=== PATIENT | male | born 1960 | race Caucasian/White ===

== ENCOUNTER → 2016-12-22 | Outpatient (CLI) | payer OTHER ==
--- NOTE | 2016-12-22 09:58 | CTL ---
EXAMINATION TYPE: CT Low Dose Lung cancer screening DATE OF EXAM ORDERED: 12/22/2016 9:21 AM HISTORY: 56-year-old male screening CT exam for lung cancer, personal history of tobacco use. CT DLP: [address] CTDI: 2.75 mGy Automated exposure control for dose reduction was used. SCREENING VISIT: Baseline COMPARISON: None TECHNIQUE: Low dose computed tomography scan was performed through the chest at 1 mm thick sections and reconstructed images in the coronal plane at 1 mm thick sections. Coronal and sagittal reconstructions performed. CT DIAGNOSTIC QUALITY: Limited, but interpretable FINDINGS: Heart is normal size without pericardial effusion. Coronary vessel calcifications are present and are a marker for coronary artery disease. Aortic valvular calcifications are noted. Mild atherosclerotic arch calcifications with conventional arch vessel branching anatomy. Scattered nonenlarged mediastinal lymph nodes. No thoracic lymphadenopathy identified by CT size criteria. Mild diffuse bronchial wall thickening. No consolidation or pleural effusion. No suspicious pulmonary nodule or mass. Minimal strandy atelectasis at the inferior lingula. Visualized upper abdomen shows moderate stool within the colon. The spleen is enlarged at 15.8 cm. Bones: No osseous destructive process. IMPRESSION: 1. Lung RADS 1 - negative; no suspicious pulmonary nodules seen. 2. Mild diffuse bronchial wall thickening could represent bronchitis or chronic asthma. 3. CAD. 4. Splenomegaly at 15.8 cm. RECOMMENDATION: 1. Continue annual screening with low dose CT in 12 months. 2. Smoking cessation. 3. Clinical correlation for patient's splenomegaly. CT LUNG RAD: Lung-Rad 1 Negative MTDD
== END | disposition home or self-care (01) ==
LOC: RADCTMAIN 08:57
PROVIDERS: ATTEND Family Medicine
DX: Z87.891 Personal history of nicotine dependence (principal)

== ENCOUNTER 2017-04-08 18:16 | Inpatient (IN) | payer OTHER ==
[2017-04-08] MEDS ORDERED: ONDANSETRON 4 MG/2 ML VIAL IVP STA (19:29)
[2017-04-08] MEDS ORDERED: HYDROmorphone 1 MG/ML 1 ML SYRINGE IVP STA (19:29)
--- NOTE | 2017-04-08 19:32 | ED ---
General Adult HPI - General Source: patient, RN notes reviewed Mode of arrival: wheelchair Limitations: no limitations <Rich Fleming - Last Filed: 04/08/17 19:38> <Rigo Wetzel - Last Filed: 04/08/17 22:37> - General Chief complaint: Skin/Abscess/Foreign Body Stated complaint: abscess on groin Time Seen by Provider: 04/08/17 19:25 - History of Present Illness Initial comments: Patient 56-year-old male who presents emergency room today with chief complaint of left-sided scrotal abscess. He does admit that he had similar approximate 6 years ago that was drained by urologist in [place]. He states that he noticed small bump just 2 days ago. States Larger over the last 2 days much more tender to the area. States worse with any movements. Worse on palpation. Please use medication as discussed. Please follow-up with family doctor in the next 2 days of symptoms have not improved. Please return to emergency room if the symptoms increase or worsen or for any other concerns. Denies any other complaints associated symptoms. Patient denies any recent fever, chills, shortness of breath, chest pain, back pain, abdominal pain, nausea or vomiting, numbness or tingling, dysuria or hematuria, constipation or diarrhea, headaches or visual changes, or any other complaints. (Rich Fleming) - Related Data Home Medications Medication Instructions Recorded Confirmed diphenhydrAMINE HCL [Benadryl] 50 mg PO HS PRN 04/08/17 04/08/17 Previous Rx's Medication Instructions Recorded Atorvastatin [Lipitor] 20 mg PO HS #30 tab 04/26/14 Clopidogrel [Plavix] 75 mg PO DAILY #30 tab 04/26/14 Gabapentin [Neurontin] 100 mg PO TID #90 cap 04/26/14 Hydrochlorothiazide [Hydrodiuril] 12.5 mg PO DAILY #30 cap 04/26/14 Allergies Allergy/AdvReac Type Severity Reaction Status Date / Time No Known Allergies Allergy Verified 04/08/17 20:03 Review of Systems ROS Other: All systems not noted in ROS Statement are negative. <Rich Fleming - Last Filed: 04/08/17 19:38> ROS Other: All systems not noted in ROS Statement are negative. <Rigo Wetzel - Last Filed: 04/08/17 22:37> ROS Statement: Those systems with pertinent positive or pertinent negative responses have been documented in the HPI. Past Medical History Past Medical History: CVA/TIA, Hyperlipidemia, Hypertension History of Any Multi-Drug Resistant Organisms: None Reported Past Surgical History: Appendectomy, Ear Surgery Past Psychological History: Depression Smoking Status: Current every day smoker Past Alcohol Use History: None Reported Past Drug Use History: None Reported <Rich Fleming - Last Filed: 04/08/17 19:38> General Exam Limitations: no limitations <Rich Fleming - Last Filed: 04/08/17 19:38> <Rigo Wetzel - Last Filed: 04/08/17 22:37> - General Exam Comments Initial Comments: General: The patient is awake and alert, in no distress, and does not appear acutely ill. Eye: Pupils are equal, round and reactive to light, extra-ocular movements are intact. No nystagmus. There is normal conjunctiva bilaterally. No signs of icterus. Ears, nose, mouth and throat: There are moist mucous membranes and no oral lesions. Neck: The neck is supple, there is no tenderness or JVD. Cardiovascular: There is a regular rate and rhythm. No murmur, rub or gallop is appreciated. Respiratory: Lungs are clear to auscultation, respirations are non-labored, breath sounds are equal. No wheezes, stridor, rales, or rhonchi. Gastrointestinal: Soft, non-distended, non-tender abdomen without masses or organomegaly noted. There is no rebound or guarding present. No CVA tenderness. Bowel sounds are unremarkable. Musculoskeletal: Normal ROM, no tenderness. Strength 5/5. Sensation intact. Pulses equal bilaterally 2+. Neurological: A&O x 3. CN II-XII intact, There are no obvious motor or sensory deficits. Coordination appears grossly intact. Speech is normal. Skin: Skin is warm and dry and no rashes or lesions are noted. Psychiatric: Cooperative, appropriate mood & affect, normal judgment. : circumcised male. Moderate swelling to the left lower scrotum. Firm on palpation. (Rich Fleming) Medical Decision Making <Rich Fleming - Last Filed: 04/08/17 19:38> - Lab Data Result diagrams: 04/08/17 20:38 04/08/17 20:38 <Rigo Wetzel - Last Filed: 04/08/17 22:37> - Medical Decision Making This is a 56-year-old male presents emergency department for left inguinal pain. Computed tomography scan shows an abscess in the area. The patient is having exquisite tenderness to the left inguinal area and due to the location near the scrotum I do not feel comfortable at this time incising and draining at bedside. The patient had to go to the OR last time this occurred. I spoke with Dr. Oneill who accepts the admission and states to make him nothing by mouth after midnight. Patient is currently comfortable. Given vancomycin and Zosyn to cover for MRSA and gram negatives and anaerobes. We'll place in observation overnight for I&D tomorrow in the or. (Rigo Wetzel) - Lab Data Lab Results 04/08/17 04/08/17 04/08/17 Range/Units 20:30 20:38 20:38 WBC 15.5 H (3.8-10.6) k/uL RBC 5.62 (4.30-5.90) m/uL Hgb 16.9 (13.0-17.5) gm/dL Hct 51.5 (39.0-53.0) % MCV 91.5 (80.0-100.0) fL MCH 30.0 (25.0-35.0) pg MCHC 32.8 (31.0-37.0) g/dL RDW 14.2 (11.5-15.5) % Plt Count 278 (150-450) k/uL Neutrophils % 81 % Lymphocytes % 12 % Monocytes % 4 % Eosinophils % 1 % Basophils % 1 % Neutrophils # 12.6 H (1.3-7.7) k/uL Lymphocytes # 1.9 (1.0-4.8) k/uL Monocytes # 0.7 (0-1.0) k/uL Eosinophils # 0.1 (0-0.7) k/uL Basophils # 0.1 (0-0.2) k/uL Sodium 138 (137-145) mmol/L Potassium 3.7 (3.5-5.1) mmol/L Chloride 102 (98-107) mmol/L Carbon Dioxide 24 (22-30) mmol/L Anion Gap 12 mmol/L BUN 7 L (9-20) mg/dL Creatinine 0.60 L (0.66-1.25) mg/dL Est GFR (MDRD) Af Amer >60 (>60 ml/min/1.73 sqM) Est GFR (MDRD) Non-Af >60 (>60 ml/min/1.73 sqM) Glucose 98 (74-99) mg/dL Calcium 9.7 (8.4-10.2) mg/dL Total Bilirubin 1.3 (0.2-1.3) mg/dL AST 16 L (17-59) U/L ALT 21 (21-72) U/L Alkaline Phosphatase 64 (38-126) U/L Total Protein 6.8 (6.3-8.2) g/dL Albumin 3.9 (3.5-5.0) g/dL Urine Color Yellow Urine Appearance Clear (Clear) Urine pH 7.5 (5.0-8.0) Ur Specific [place] 1.007 (1.001-1.035) Urine Protein Negative (Negative) Urine Glucose (UA) Negative (Negative) Urine Ketones Negative (Negative) Urine Blood Negative (Negative) Urine Nitrite Negative (Negative) Urine Bilirubin Negative (Negative) Urine Urobilinogen <2.0 (<2.0) mg/dL Ur Leukocyte Esterase Negative (Negative) Disposition <Rich Fleming - Last Filed: 04/08/17 19:38> <Rigo Wetzel - Last Filed: 04/08/17 22:37> Clinical Impression: Inguinal abscess Disposition: ADMITTED IP TO THIS HOSP Condition: Stable
[2017-04-08] MEDS ORDERED: RX INFO: IV CONTRAST WAS GIVEN 1 EACH MISC MISCELLANE PRN (19:38)
[2017-04-08 20:43] LABS: Appearance,Urine Clear (Clear); Bilirubin,Urine Negative (Negative); Glucose,Urine (UA) Negative (Negative); Ketones,Urine Negative (Negative); Leukocyte Esterase,Urine Negative (Negative); Nitrite,Urine Negative (Negative); PH, Urine 7.5 (5.0-8.0); Protein,Urine Negative (Negative); Specific Gravity,Urine 1.007 (1.001-1.035); UA Billing (MACRO vs. MICRO) CHEM; Urobilinogen,Urine <2.0 mg/dL (<2.0)
[2017-04-08 21:22] LABS: ALT 21 U/L (21-72); AST 16 U/L (17-59); Alkaline Phosphatase 64 U/L (38-126); Anion Gap 12 mmol/L; Blood Urea Nitrogen 7 mg/dL (9-20); Calcium 9.7 mg/dL (8.4-10.2); Carbon Dioxide 24 mmol/L (22-30); Chloride 102 mmol/L (98-107); Glucose 98 mg/dL (74-99); Non-African American GFR(MDRD) >60 (>60 ml/min/1.73 sqM); Potassium 3.7 mmol/L (3.5-5.1); Sodium 138 mmol/L (137-145); Total Bilirubin 1.3 mg/dL (0.2-1.3); Total Protein 6.8 g/dL (6.3-8.2)
--- NOTE | 2017-04-08 21:56 | CT ---
EXAMINATION TYPE: CT pelvis w con DATE OF EXAM: 04/08/2017 COMPARISON: NONE HISTORY: Abscess to groin area x2 days. Pain not further specified. CT DLP: 792.9 mGycm Automated exposure control for dose reduction was used. CONTRAST: CT of pelvis is performed without oral but with IV. Performed with IV Contrast, patient injected with 100 mL of Omnipaque 300. FINDINGS: There are prominent but subcentimeter lymph nodes seen in the bilateral groin region. No bowel or fat -containing inguinal hernia is seen. Adjacent to the left thigh posterior to the iliac bone near skin surface in the lower pelvis there is ill-defined fluid and fat stranding centered left of midline with thin-walled fluid collection measu ring 3.8 x 2.3 cm on axial image 66 suspicious for developing abscess. This is inferior to the anus. Perirectal and perianal fat is preserved superior to this. Visualized bowel shows no suspicious dilatation. There is moderate calcified plaque in the visualized abdominal aorta extending into pelvic branch vessels. Prostate gland is upper limits of normal in si ze. No concerning pelvic fluid collection is seen. No pelvic adenopathy is noted. There is mild to mo derate spurring and disc space narrowing at L4-L5 and L5-S1 levels in the lumbar spine. IMPRESSION: LEFT-SIDED FOCAL INFERIOR PELVIC INFLAMMATION WITH DEVELOPING SMALL ABSCESS NEAR SKIN SURFACE DETA ILED ABOVE.
[2017-04-08 21:59] LABS: Basophils # (A) 0.1 k/uL (0-0.2); Basophils % (A) 1 %; CH 31.7; CHCM 34.8; Eosinophils # (A) 0.1 k/uL (0-0.7); Eosinophils % (A) 1 %; HCT 51.5 % (39.0-53.0); HDW 2.49; HGB 16.9 gm/dL (13.0-17.5); Luc # (Auto) 0.19; Luc % (Auto) 1; Lymphocytes # (A) 1.9 k/uL (1.0-4.8); Lymphocytes % (A) 12 %; MCHC 32.8 g/dL (31.0-37.0); MCV 91.5 fL (80.0-100.0); Mean Platelet Volume 7.5; Monocytes # (A) 0.7 k/uL (0-1.0); Monocytes % (A) 4 %; Neutrophils # (A) 12.6 k/uL (1.3-7.7); Neutrophils % (A) 81 %; RBC 5.62 m/uL (4.30-5.90); RDW 14.2 % (11.5-15.5); WBC 15.5 k/uL (3.8-10.6); WBC (Perox) 16.15
[2017-04-08] MEDS ORDERED: IV VANCOMYCIN PER PHARMACY 1 EACH MISC MISCELLANE PRN (22:15)
[2017-04-08] MEDS ORDERED: PIPERACILLIN-TAZOBACTAM 3.375 GM in DEXTROSE/WATER 1 50ML.BAG IVPB STA (22:15)
[2017-04-08] MEDS ORDERED: VANCOMYCIN 2,000 MG in SODIUM CHLORIDE 0.9% 500 ML IVPB STA (22:21)
[2017-04-08] MEDS ORDERED: NALOXONE 0.4 MG/ML 1 ML VIAL IV PRN (22:33)
[2017-04-08] MEDS ORDERED: MORPHINE SULFATE 4 MG/ML SYRINGE IV PRN (22:33)
[2017-04-08] MEDS: SODIUM CHLORIDE 0.9% 1,000 ML IV SCH (22:57)
[2017-04-08 23:43] VITALS: BMI 33.0
[2017-04-09] MEDS ORDERED: MORPHINE SULFATE 4 MG/ML SYRINGE IV PRN (04:38)
[2017-04-09] MEDS: HYDROmorphone 1 MG/ML 1 ML SYRINGE IVP PRN ×3 (07:56→22:33)
[2017-04-09] MEDS: VANCOMYCIN 1,750 MG in SODIUM CHLORIDE 0.9% 250 ML IVPB SCH ×4 (07:57→23:17)
--- NOTE | 2017-04-09 08:09 | P.GSHP ---
History of Present Illness H&P Date: 04/09/17 Chief Complaint: Abscess The patient is a 56 show man who began having discomfort in left portion of the scrotum on Thursday Progressively worse so he came in and was admitted with abscess. He had a history of a abscess in the right side about strictures ago. It was not MRSA. No history of exposure to MRSA. Denies Diabetes. 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 Past Drug Use History: None Reported Medications and Allergies Home Medications Medication Instructions Recorded Confirmed Type diphenhydrAMINE HCL [Benadryl] 50 mg PO HS PRN 04/08/17 04/08/17 History Allergies Allergy/AdvReac Type Severity Reaction Status Date / Time No Known Allergies Allergy Verified 04/08/17 23:30 Surgical - Exam Osteopathic Statement: *. No significant issues noted on an osteopathic structural exam other than those noted in the History and Physical/Consult. Vital Signs Temp Pulse Resp BP Pulse Ox 97.7 F 89 20 119/75 96 04/08/17 18:22 04/08/17 18:22 04/08/17 18:22 04/08/17 18:22 04/08/17 18:22 - General well developed, well nourished, no distress - Eyes normal ocular movement - ENT normal mucosa - Neck trachea midline - Respiratory normal respiratory effort, clear to auscultation - Cardiovascular Rhythm: regular - Abdomen Abdomen: soft - Genitourinary Firm, tender mass to the scrotum Results - Labs 04/08/17 20:38 04/08/17 20:38 Abnormal Lab Results - Last 24 Hours (Table) 04/08/17 04/08/17 Range/Units 20:38 20:38 WBC 15.5 H (3.8-10.6) k/uL Neutrophils # 12.6 H (1.3-7.7) k/uL BUN 7 L (9-20) mg/dL Creatinine 0.60 L (0.66-1.25) mg/dL AST 16 L (17-59) U/L Diabetes panel 04/08/17 Range/Units 20:38 Sodium 138 (137-145) mmol/L Potassium 3.7 (3.5-5.1) mmol/L Chloride 102 (98-107) mmol/L Carbon Dioxide 24 (22-30) mmol/L BUN 7 L (9-20) mg/dL Creatinine 0.60 L (0.66-1.25) mg/dL Glucose 98 (74-99) mg/dL Calcium 9.7 (8.4-10.2) mg/dL AST 16 L (17-59) U/L ALT 21 (21-72) U/L Alkaline Phosphatase 64 (38-126) U/L Total Protein 6.8 (6.3-8.2) g/dL Albumin 3.9 (3.5-5.0) g/dL Calcium panel 04/08/17 Range/Units 20:38 Calcium 9.7 (8.4-10.2) mg/dL Albumin 3.9 (3.5-5.0) g/dL Pituitary panel 04/08/17 Range/Units 20:38 Sodium 138 (137-145) mmol/L Potassium 3.7 (3.5-5.1) mmol/L Chloride 102 (98-107) mmol/L Carbon Dioxide 24 (22-30) mmol/L BUN 7 L (9-20) mg/dL Creatinine 0.60 L (0.66-1.25) mg/dL Glucose 98 (74-99) mg/dL Calcium 9.7 (8.4-10.2) mg/dL Adrenal panel 04/08/17 Range/Units 20:38 Sodium 138 (137-145) mmol/L Potassium 3.7 (3.5-5.1) mmol/L Chloride 102 (98-107) mmol/L Carbon Dioxide 24 (22-30) mmol/L BUN 7 L (9-20) mg/dL Creatinine 0.60 L (0.66-1.25) mg/dL Glucose 98 (74-99) mg/dL Calcium 9.7 (8.4-10.2) mg/dL Total Bilirubin 1.3 (0.2-1.3) mg/dL AST 16 L (17-59) U/L ALT 21 (21-72) U/L Alkaline Phosphatase 64 (38-126) U/L Total Protein 6.8 (6.3-8.2) g/dL Albumin 3.9 (3.5-5.0) g/dL - Imaging CT scan - pelvis: report reviewed, image reviewed Assessment and Plan (1) Abscess Status: Acute Plan: Recommendation is incision and drainage. The procedure, risks, complications were discussed. Questions were encouraged and answered. We'll do cultures. IV antibiotics. Further recommendations to follow.
[2017-04-09] MEDS ORDERED: IV FLUID CONTINUATION 450 ML IV ONE (08:50)
[2017-04-09] MEDS ORDERED: IV FLUID CONTINUATION 250 ML IV ONE (08:51)
[2017-04-09] MEDS ORDERED: PROPOFOL 10 MG/ML 20 ML VIAL IV ONE (08:58)
[2017-04-09] MEDS ORDERED: fentaNYL (PF) 50 MCG/ML 2 ML AMP ONE (08:58)
[2017-04-09] MEDS ORDERED: MIDAZOLAM 2 MG/2 ML VIAL ONE (08:58)
[2017-04-09] MEDS ORDERED: HYDROcodone/APAP 5-325MG 1 EACH TAB PO PRN ×2 (09:19)
--- NOTE | 2017-04-09 09:22 | P.OP ---
Date of Procedure: 04/09/17 Preoperative Diagnosis: scrotal abscess Postoperative Diagnosis: same Procedure(s) Performed: incision and drainage Implants: Anesthesia: MAC Surgeon: Ema Oneill Estimated Blood Loss (ml): 10 Pathology: none sent Condition: stable Disposition: PACU Indications for Procedure: The patient presented with abscess Operative Findings: The patient's taken the operative suite was prepped and draped in usual sterile manner under IV sedation. Local anesthetic was instilled in the skin. An incision was made with drainage of mucopurulent material. The wound was then irrigated and packed with 1 inch iodoform gauze. A dressing was applied. He tolerated the procedure without difficulty and was taken recovery room in satisfactory condition. Description of Procedure:
[2017-04-09] MEDS ORDERED: BUPIVACAIN-EPI 0.5%-1:200,000 30 ML VIAL SQ ONE (09:25)
[2017-04-09] MEDS: KETOROLAC 30 MG/ML 1 ML VIAL IVP SCH ×3 (09:51→22:00)
[2017-04-09] MEDS: SODIUM CHLORIDE 0.9% 1,000 ML IV SCH ×2 (11:06→22:58)
[2017-04-09] MEDS: GABAPENTIN 100 MG CAP PO SCH ×3 (11:11→23:15)
[2017-04-09] MEDS: HYDROCHLOROTHIAZIDE 12.5 MG CAP PO SCH (11:11)
[2017-04-09] MEDS: ATORVASTATIN 20 MG TAB PO SCH (22:20)
[2017-04-10] MEDS: KETOROLAC 30 MG/ML 1 ML VIAL IVP SCH ×4 (04:09→21:11)
[2017-04-10] MEDS: SODIUM CHLORIDE 0.9% 1,000 ML IV SCH ×2 (04:12→15:56)
[2017-04-10] MEDS ORDERED: VANCOMYCIN TROUGH DUE 1 EACH MISC MISCELLANE ONE (07:00)
[2017-04-10 07:05] LABS: Basophils # (A) 0.1 k/uL (0-0.2); Basophils % (A) 1 %; CH 31.1; CHCM 33.7; Eosinophils # (A) 0.2 k/uL (0-0.7); Eosinophils % (A) 2 %; HCT 44.7 % (39.0-53.0); HGB 14.7 gm/dL (13.0-17.5); Luc # (Auto) 0.18; Luc % (Auto) 1; Lymphocytes # (A) 1.2 k/uL (1.0-4.8); Lymphocytes % (A) 8 %; MCH 30.4 pg (25.0-35.0); MCHC 32.9 g/dL (31.0-37.0); MCV 92.5 fL (80.0-100.0); Mean Platelet Volume 7.2; Monocytes # (A) 0.8 k/uL (0-1.0); Monocytes % (A) 6 %; Neutrophils # (A) 11.4 k/uL (1.3-7.7); Neutrophils % (A) 82 %; RBC 4.83 m/uL (4.30-5.90); RDW 13.5 % (11.5-15.5); WBC 13.9 k/uL (3.8-10.6); WBC (Perox) 13.97
[2017-04-10 07:27] LABS: Calcium 8.1 mg/dL (8.4-10.2); Potassium 3.8 mmol/L (3.5-5.1)
[2017-04-10] MEDS: GABAPENTIN 100 MG CAP PO SCH ×3 (09:26→21:03)
[2017-04-10] MEDS: HYDROCHLOROTHIAZIDE 12.5 MG CAP PO SCH (09:26)
--- NOTE | 2017-04-10 12:04 | P.PN ---
Subjective Principal diagnosis: Scrotal abscess The patient's postoperative day 1 from incision and drainage of scrotal abscess. He is feeling better. The packing was changed this morning. Objective - Vital Signs Vital signs: Vital Signs Temp 98.2 F 04/10/17 09:23 Pulse 66 04/10/17 09:23 Resp 18 04/10/17 09:23 BP 117/66 04/10/17 09:23 Pulse Ox 96 04/10/17 09:23 Intake & Output 04/09/17 04/10/17 04/10/17 18:59 06:59 18:59 Intake Total 1420 590 300 Output Total 605 300 Balance 815 590 0 Weight 113.398 kg 113.398 kg Intake: IV 150 Intake, IV Titration 250 Amount Vancomycin 1,750 mg In 250 Sodium Chloride 0.9% 250 ml @ 125 mls/hr IVPB Q8HR [facility] Rx#:[id number] Oral 1020 590 300 Output: Urine 600 300 Estimated Blood Loss 5 Other: Voiding Method Toilet Toilet Urinal Urinal # Voids 2 2 - Constitutional General appearance: Present: cooperative - Integumentary Integumentary Comment(s): Packing is in place - Labs CBC & Chem 7: 04/10/17 06:43 04/10/17 06:43 Labs: Abnormal Lab Results - Last 24 Hours (Table) 04/10/17 04/10/17 04/10/17 Range/Units 06:43 06:43 06:43 WBC 13.9 H (3.8-10.6) k/uL Neutrophils # 11.4 H (1.3-7.7) k/uL Creatinine 2.25 H (0.66-1.25) mg/dL Glucose 109 H (74-99) mg/dL Calcium 8.1 L (8.4-10.2) mg/dL Vancomycin Trough 33.9 H* ug/mL Microbiology - Last 24 Hours (Table) 04/09/17 09:15 Gram Stain - Preliminary Scrotum Wound Culture - Preliminary 04/08/17 20:38 Blood Culture - Preliminary Blood No Growth after 24 hours 04/09/17 09:15 Anaerobic Culture - Preliminary Scrotum Assessment and Plan (1) Abscess Status: Acute Plan: Hep-Lock IV. Await culture did determine that antibiotics. Likely discharge tomorrow.
[2017-04-10] MEDS: HYDROmorphone 1 MG/ML 1 ML SYRINGE IVP PRN (16:06)
[2017-04-10] MEDS: ATORVASTATIN 20 MG TAB PO SCH (21:03)
[2017-04-11] MEDS: SODIUM CHLORIDE 0.9% 1,000 ML IV SCH (04:30)
[2017-04-11] MEDS: KETOROLAC 30 MG/ML 1 ML VIAL IVP SCH (04:30)
[2017-04-11] MEDS ORDERED: VANCOMYCIN 1,750 MG in SODIUM CHLORIDE 0.9% 250 ML IVPB SCH (06:00)
[2017-04-11 07:52] VITALS: BP 125/78; PULSE 60; RESP 15; TEMP 97.8
[2017-04-11] MEDS: GABAPENTIN 100 MG CAP PO SCH (08:22)
[2017-04-11] MEDS: HYDROCHLOROTHIAZIDE 12.5 MG CAP PO SCH (08:22)
--- NOTE | 2017-04-11 11:41 | P.DS ---
Providers Date of admission: 04/09/17 09:19 Expected date of discharge: 04/11/17 Attending physician: Ema Oneill Primary care physician: Feliz Arndt [facility] Course: This is a 56-year-old male who underwent incision and drainage of a inguinal abscess. Please see hospital chart for details. Patient Condition at Discharge: Stable Plan - Discharge Summary New Discharge Prescriptions: New HYDROcodone/APAP 5-325MG [[place] 5-325] 1 - 2 tab PO Q4H PRN #30 tab PRN Reason: Pain Sulfamethox-Tmp 800-160Mg [Bactrim DS 800-160 mg] 1 tab PO Q12HR #28 tab No Action Atorvastatin [Lipitor] 20 mg PO HS #30 tab Gabapentin [Neurontin] 100 mg PO TID #90 cap Hydrochlorothiazide [Hydrodiuril] 12.5 mg PO DAILY #30 cap Clopidogrel [Plavix] 75 mg PO DAILY #30 tab diphenhydrAMINE HCL [Benadryl] 50 mg PO HS PRN PRN Reason: Allergy Symptoms Discharge Medication List Atorvastatin [Lipitor] 20 mg PO HS #30 tab 04/26/14 [Rx] Clopidogrel [Plavix] 75 mg PO DAILY #30 tab 04/26/14 [Rx] Gabapentin [Neurontin] 100 mg PO TID #90 cap 04/26/14 [Rx] Hydrochlorothiazide [Hydrodiuril] 12.5 mg PO DAILY #30 cap 04/26/14 [Rx] diphenhydrAMINE HCL [Benadryl] 50 mg PO HS PRN 04/08/17 [History] HYDROcodone/APAP 5-325MG [[place] 5-325] 1 - 2 tab PO Q4H PRN #30 tab 04/10/17 [Rx ] Sulfamethox-Tmp 800-160Mg [Bactrim DS 800-160 mg] 1 tab PO Q12HR #28 tab [Rx] Follow up Appointment(s)/Referral(s): Ema Oneill DO [Doctor of Osteopathic Medicine] - 2 Weeks Feliz Arndt MD [Primary Care Provider] - 1 Week Activity/Diet/Wound Care/Special Instructions: The abscess cavity is to be irrigated daily with normal saline. Pack with gauze. Cover with dry dressing.
== END 2017-04-11 12:51 | disposition home or self-care (01) | DRG 728 ==
LOC: EC 18:16 → 3OBS 22:33 → OBSVTOIN 04-09 09:19 → 3SUR 04-09 17:31
PROVIDERS: ADMIT Surgery; ATTEND Surgery
PROC: 0V950ZZ Drainage of Scrotum, Open Approach (ICD-10-PCS; principal; 2017-04-09 07:30)
DX: N49.2 Inflammatory disorders of scrotum (principal); I10 Essential (primary) hypertension; E78.5 Hyperlipidemia, unspecified; F17.200 Nicotine dependence, unspecified, uncomplicated; Z86.69 Personal history of other diseases of the nervous system and sense organs; Z86.59 Personal history of other mental and behavioral disorders; Z79.02 Long term (current) use of antithrombotics/antiplatelets; Z86.73 Personal history of transient ischemic attack (TIA), and cerebral infarction without residual deficits; Z79.899 Other long term (current) drug therapy; Z86.19 Personal history of other infectious and parasitic diseases; Z90.49 Acquired absence of other specified parts of digestive tract
CPT/HCPCS: 36415; 72193; 80048; 80053; 80202; 81003; 85025; 87040; 87070; 87075; 87205; 96365; 96375; 99284

== ENCOUNTER 2020-03-03 12:22 | Emergency (ER) | payer OTHER, MEDICARE ==
[2020-03-03 12:33] VITALS: BP 127/84; PULSE 83; RESP 18; TEMP 97.9
[2020-03-03] MEDS ORDERED: DIPH,PERTUS(ACELL)TETVAC-LF 0.5 ML VIAL IM ONE (12:56)
[2020-03-03] MEDS ORDERED: LIDOCAINE 1% INJ 10MG/ML (20 ML MDV) SQ ONE (12:56)
--- NOTE | 2020-03-03 12:59 | ED ---
Wound/Laceration HPI - General Chief Complaint: Wound/Laceration Stated Complaint: Finger Lac Time Seen by Provider: 03/03/20 12:40 Source: patient, RN notes reviewed, old records reviewed Mode of arrival: ambulatory Limitations: no limitations - History of Present Illness Initial Comments: 59-year-old male presents for his service today for laceration over his right second digit. He cut himself with a sharp chisel. Patient reports full range of motion of the finger and normal sensation distally. He denies any other complaints. - Related Data Home Medications Medication Instructions Recorded Confirmed diphenhydrAMINE HCL [Benadryl] 50 mg PO HS PRN 04/08/17 04/08/17 Previous Rx's Medication Instructions Recorded Atorvastatin [Lipitor] 20 mg PO HS #30 tab 04/26/14 Clopidogrel [Plavix] 75 mg PO DAILY #30 tab 04/26/14 Gabapentin [Neurontin] 100 mg PO TID #90 cap 04/26/14 Hydrochlorothiazide [Hydrodiuril] 12.5 mg PO DAILY #30 cap 04/26/14 HYDROcodone/APAP 5-325MG [[place] 1 - 2 tab PO Q4H PRN #30 tab 04/10/17 5-325] Sulfamethox-Tmp 800-160Mg [Bactrim 1 tab PO Q12HR #28 tab 04/11/17 DS 800-160 mg] Allergies Allergy/AdvReac Type Severity Reaction Status Date / Time No Known Allergies Allergy Verified 03/03/20 12:30 Review of Systems ROS Statement: Those systems with pertinent positive or pertinent negative responses have been documented in the HPI. ROS Other: All systems not noted in ROS Statement are negative. Past Medical History Past Medical History: CVA/TIA, Hyperlipidemia, Hypertension History of Any Multi-Drug Resistant Organisms: None Reported Past Surgical History: Appendectomy, Ear Surgery Past Anesthesia/Blood Transfusion Reactions: No Reported Reaction Past Psychological History: No Psychological Hx Reported, Depression, Panic Disorder Smoking Status: Current every day smoker Past Alcohol Use History: None Reported Past Drug Use History: None Reported General Exam - General Exam Comments Initial Comments: Pleasant 59-year-old male. No acute distress. Limitations: no limitations General appearance: alert, in no apparent distress Head exam: Present: atraumatic, normocephalic, normal inspection Eye exam: Present: normal appearance, PERRL, EOMI. Absent: scleral icterus, conjunctival injection, periorbital swelling ENT exam: Present: normal exam, mucous membranes moist Neck exam: Present: normal inspection. Absent: tenderness, meningismus, lymphadenopathy Respiratory exam: Present: normal lung sounds bilaterally. Absent: respiratory distress, wheezes, rales, rhonchi, stridor Cardiovascular Exam: Present: regular rate, normal rhythm, normal heart sounds. Absent: systolic murmur, diastolic murmur, rubs, gallop, clicks Right Elbow exam: Present: normal inspection, full ROM Forearm Wrist exam: Present: normal inspection, full ROM Hand Wrist exam: Present: full ROM, laceration (2 cm laceration over the second PIP.). Absent: normal inspection (Patient is superficial linear laceration over the right second PIP. Full range of motion of the finger. No tendon involvement. Normal sensation distally.) Neuro motor exam: Present: wrist extension intact, thumb opposition intact, thumb IP flexion intact, thumb adduction intact, fingers 2-5 abduction intact Vascular: Present: normal capillary refill Back exam: Present: normal inspection Neurological exam: Present: alert, oriented X3, CN II-XII intact Psychiatric exam: Present: normal affect, normal mood Skin exam: Present: warm, dry, intact, normal color. Absent: rash Course Vital Signs 03/03/20 12:30 Temperature 97.9 F Pulse Rate 83 Respiratory 18 Rate Blood Pressure 127/84 O2 Sat by Pulse 95 Oximetry Procedures - Laceration Laceration #1 Size (cm): 2 Description: linear Depth: simple, single layer Anesthetic Used: lidocaine 1% Anesthesia Technique: local infiltration Amount (mls): 4 Pre-repair: wound explored Type of Sutures: nylon Size of Sutures: 5-0 Number of Sutures: 4 Technique: simple, interrupted Patient Tolerated Procedure: well, no complications Medical Decision Making - Medical Decision Making [id number] male presents for his friends they have laceration over his right second digit PIP after cutting himself with a sharp chisel. Patient's laceration is superficial. No tendon involvement. He has full range motion sensation of the finger. Laceration was thoroughly irrigated and closed with 4 sutures to stop the bleeding. Patient tolerated the procedure well. Patient is given a finger splint to keep the finger straight and advised following up with primary care doctor. Patient given information on suture care. All questions answered. Disposition Clinical Impression: Finger laceration Disposition: HOME SELF-CARE Condition: Good Instructions (If sedation given, give patient instructions): Laceration (ED) Additional Instructions: Please return to the emergency room in 7-10 days to have sutures removed. Please leave wound covered for the first 24-48 hours and then leave open to air after that time. Please use clean soap and water to clean the suture area to prevent scabbing over the top of your sutures. Please watch for any signs of infection which may include but not limited to increased pain, swelling, redness, fever or chills. Please return to the emergency room if any signs of infection do occur. Please return to the emergency room for any other concerns or complications. Is patient prescribed a controlled substance at d/c from ED?: No Referrals: Fabio Burleson MD [Primary Care Provider] - 1-2 days Time of Disposition: 13:28
== END 2020-03-03 13:45 | disposition home or self-care (01) ==
LOC: EC 12:22
DX: S61.210A Laceration without foreign body of right index finger without damage to nail, initial encounter (principal); Z23 Encounter for immunization; F17.200 Nicotine dependence, unspecified, uncomplicated; W26.8XXA Contact with other sharp object(s), not elsewhere classified, initial encounter; Y92.009 Unspecified place in unspecified non-institutional (private) residence as the place of occurrence of the external cause
CPT/HCPCS: 90715; 99283; 90471; 12001; J2001

== ENCOUNTER → 2020-10-31 | Outpatient (CLI) | payer OTHER ==
--- NOTE | 2020-11-01 09:57 | ECHOF ---
Referral Reason:I10 hypertention MEASUREMENTS -------- HEIGHT: 185.4 cm WEIGHT: 106.1 kg BP: 117/73 RVIDd: 3.1 cm (< 3.3) IVSd: 1.3 cm (0.6 - 1.1) LVIDd: 4.3 cm (3.9 - 5.3) LVPWd: 1.3 cm (0.6 - 1.1) IVSs: 1.9 cm LVIDs: 2.7 cm LVPWs: 1.9 cm LA Diam: 3.4 cm (2.7 - 3.8) LAESV Index (A-L): 20.21 ml/m Ao Diam: 3.5 cm (2.0 - 3.7) AV Cusp: 1.8 cm (1.5 - 2.6) MV EXCURSION: 18.048 mm (> 18.000) MV EF SLOPE: 52 mm/s (70 - 150) EPSS: 1.1 cm MV E Evaristo: 0.62 m/s MV DecT: 314 ms MV A Evaristo: 0.73 m/s MV E/A Ratio: 0.85 AV maxP.78 mmHg AV meanP.07 mmHg FINDINGS -------- Sinus rhythm. This was a technically adequate study. The left ventricular size is normal. There is mild concentric left ventricular hypertrophy. Overa ll left ventricular systolic function is normal with, an EF between 55 - 60 %. The right ventricle is normal in size. Normal LA size by volume 22+/-6 ml/m2. The right atrium is normal in size. Interatrial and interventricular septum intact. There is mild aortic valve sclerosis. There is mild aortic stenosis present. Peak/mean gradient a cross the Aortic Valve is 17.78mmHg / 9.07mmHg. Mild mitral annular calcification present. The tricuspid valve appears structurally normal. The pulmonic valve was not well visualized. The aortic root size is normal. Normal inferior vena cava with normal inspiratory collapse consistent with estimated right atrial pre ssure of 5 mmHg. There is no pericardial effusion. CONCLUSIONS -------- 1. The left ventricular size is normal. 2. There is mild concentric left ventricular hypertrophy. 3. Overall left ventricular systolic function is normal with, an EF between 55 - 60 %. 4. There is mild aortic valve sclerosis. 5. There is mild aortic stenosis present. 6. Peak/mean gradient across the Aortic Valve is 17.78mmHg / 9.07mmHg. 7. Mild mitral annular calcification present. 8. There is no pericardial effusion. JANITOR SUPERVISOR: Anais Willis RDCS
== END ==
LOC: RADECHMAIN 11:01
PROVIDERS: ATTEND Family Medicine
DX: I35.0 Nonrheumatic aortic (valve) stenosis (principal)
CPT/HCPCS: 93306

== ENCOUNTER → 2020-11-12 | Outpatient (CLI) | payer MEDICARE, OTHER ==
[~2020-11-12] MED LIST: REGADENOSON 0.4 MG/5 ML SYRINGE IV PRN
--- NOTE | 2020-11-12 11:28 | P.STRESS ---
- Stress Test Note Stress Test Results/Findings: Exam Performed: NM stress lexiscan cardiolite Exam Date: 11/12/20 Reason for Exam: Abnormal EKG Height: 6 ft 1 in Weight: 107.955 kg Protocol: Lexiscan Stage: na Duration of Exercise: na Resting Heart Rate: 76 Resting Blood Pressure: 123/86 Maximum Achieved Heart Rate: 82 Maximum Achieved Blood Pressure: 129/81 85% PMHR: 137 100% PMHR: 161 METS: na Technologist Comment: Stress Test Results/Findings: At baseline EKG showed normal sinus rhythm, normal axis, nonspecific 0.[address] depressions in leads 3, aVF. Patient recieved IV infusion of Lexiscan 0.4mg and at peak infusion EKG showed no significant change from baseline. Conclusions: 1. Normal EKG response to Lexiscan infusion, with baseline EKG abnormalities. 2. Nuclear imaging to be reported separately.
--- NOTE | 2020-11-12 12:10 | NM ---
EXAMINATION TYPE: NM stress lexiscan cardiolite DATE OF EXAM: 11/12/2020 COMPARISON: None HISTORY: 59-year-old male abnormal EKG, heartburn. TECHNIQUE: After the intravenous administration of 9.8 mCi Tc 99m Sestamibi - Cardiolite resting SPE CT images acquired 45 minutes post injection. The patient received 0.4mg Lexiscan, 25.3 mCi Tc 99m Sestamibi - Stress images obtained [address] injection FINDINGS: Review of stress and rest SPECT images demonstrates decreased perfusion along the mid to basal septal wall. However, the defect is larger on the rest images suggesting some artifact. No discrete reversi bility is seen. Gated analysis suggested mild global hypokinesis with estimated LVEF of 45. TID is ca lculated at 1.16, upper limits of normal. IMPRESSION: 1. Consider further workup. Estimated LVEF is mildly diminished at 45%. There is also decreased perfu jaylan along the septal wall though more pronounced on rest suggesting that at least some of this findi ng is artifactual. Some underlying old septal wall infarct is difficult to exclude. 2. No suspicious reversibility is identified.
== END ==
LOC: RADNMMAIN 08:15
PROVIDERS: ATTEND Family Medicine
DX: R94.31 Abnormal electrocardiogram [ECG] [EKG] (principal); R12 Heartburn
CPT/HCPCS: 93017; 78452; A9500; J2785

== ENCOUNTER → 2023-02-24 | Outpatient (CLI) | payer OTHER ==
--- NOTE | 2023-02-25 16:21 | CTL ---
EXAMINATION TYPE: CT Low Dose Lung DATE OF EXAM: 02/24/2023 5:41 PM CLINICAL INDICATION:Male, 62 years old with history of Z87.891 PERSONAL HISTORY OF NICOTINE DEPENDENC E; former smoker, quit 4 years ago. 1 pack a day x30 years , history of tobacco use. COMPARISON: None. TECHNIQUE: Multiple axial non-contrast scans were obtained from approximately the lung apices through the upper abdomen. Coronal and sagittal reformatted images were obtained. Low dose technique was uti lized. CT DLP: 128.80 mGycm, Automated exposure control for dose reduction was used. CT Contrast: Contrast used: None Oral contrast used: None FINDINGS: ======== Lack of intravenous contrast and low dose technique limits the evaluation of the vascular and soft ti ssue structures. LUNGS: No evidence of pulmonary fibrosis. No evidence of focal consolidation, pneumothorax or pleural effusion. Nodules: RUL: None. RML: None. RLL: None. GARRISON: None. LLL: None. AIRWAY: Patent and unremarkable. HEART: The heart is within normal limits for size. There is aortic valve leaflet consultations and co ronary artery atherosclerosis. MEDIASTINUM: No gross evidence of adenopathy. VASCULATURE: No aortic aneurysm. MUSCULOSKELETAL: No acute osseous abnormalities SOFT TISSUES/LYMPH NODES: Unremarkable. LOWER NECK: No significant findings. UPPER ABDOMEN: No significant findings. IMPRESSION: 1. No pulmonary nodules. 2. Severe coronary artery atherosclerosis. CT LUNG RAD AND CT CHEST RECOMMENDATION: Lung-Rad 1 Negative: Continue annual screening with LDCT in 12 months. S Modifier (other clinically significant findings): Severe coronary artery atherosclerosis. Recommend smoking cessation (if current smoker), or continuation of smoking cessation (if prior smoke r). Annual screening for lung cancer with low-dose computed tomography is recommended in adults ages 55 to 77 years who have a 30 pack-year smoking history and currently smoke or have quit within the pa st 15 years. Screening should be discontinued once a person has not smoked for 15 years or develops a health problem that substantially limits life expectancy or the ability or willingness to have curat keisha lung surgery. Lung rads 2021 [email or web address]
== END | disposition home or self-care (01) ==
LOC: RADCTMAIN 17:19
PROVIDERS: ATTEND Family Medicine
DX: Z12.2 Encounter for screening for malignant neoplasm of respiratory organs (principal); I25.10 Atherosclerotic heart disease of native coronary artery without angina pectoris; F17.210 Nicotine dependence, cigarettes, uncomplicated
CPT/HCPCS: 71271

== ENCOUNTER → 2024-08-18 | Outpatient (CLI) | payer OTHER ==
--- NOTE | 2024-08-18 12:21 | CTL ---
EXAMINATION TYPE: CT Low Dose Lung DATE OF EXAM ORDERED: 08/18/2024 COMPARISON: 02/24/2023 CLINICAL INDICATION: Male, 63 years old with history of Z12.2 LUNG CA SCREEN Z87.891 FORMER SMOKER; P HH, former tobacco user, Lung cancer screening, History of Smoking/tobacco use. TECHNIQUE: Low dose computed tomography scan was performed through the chest at 1 mm thick sections a nd reconstructed images in multiple planes at 1 mm and [address] DLP: 100.[address] CTDI: 2.6 mGy Automated exposure control for dose reduction was used. CT DIAGNOSTIC QUALITY: Satisfactory FINDINGS: There is a new 2.2 cm groundglass opacity in the left lower lobe which is likely chronic in nature. A cute inflammation is not excluded. Follow-up CT thorax in 6 months is recommended. There are few scattered stable micronodules. There is no no focal osseous lesions are seen pleural effusion or pneumothorax. The great vessels the chest are normal. There is no mediastinal, hilar or axillary adenopathy. Limited scanning of the upper abdomen reveals no abnormality. No focal osseous lesions are seen. Impression: 1. Lung metastases category 3, likely benign. Groundglass opacity left lower lobe. Follow-up CT thora x in 6 months is recommended. 2. scattered stable micronodules. 3. No definite acute cardiopulmonary disease. [facility], , 08/18/2024 12:19 PM
== END | disposition home or self-care (01) ==
LOC: RADCTMAIN 11:31
PROVIDERS: ATTEND Family Medicine
DX: Z12.2 Encounter for screening for malignant neoplasm of respiratory organs (principal); Z87.891 Personal history of nicotine dependence; C78.00 Secondary malignant neoplasm of unspecified lung
CPT/HCPCS: 71271

== ENCOUNTER → 2025-02-10 | Outpatient (CLI) | payer OTHER ==
--- NOTE | 2025-02-10 11:01 | CT ---
EXAMINATION TYPE: CT chest wo con DATE OF EXAM: 02/10/2025 10:27 AM COMPARISON: CT 08/18/2024. CLINICAL INDICATION: Male, 64 years old with history of R91.8 OTHER NONSPECIFIC ABNORMAL FINDING OF L TOBI F; PHH, ABNORMAL FINDINGS TECHNIQUE: Multiple axial images were obtained through the chest. Sagittal and coronal reformats were created for review. MIP was performed on a separate workstation. Contrast used: mL of (None if empty) Oral contrast used: (None if empty) CT DLP: 452.1 mGycm, Automated exposure control for dose reduction was used. FINDINGS: LUNGS/ PLEURA: No focal consolidation, pneumothorax or pleural effusion. 5 mm right middle lobe pulmonary nodule is stable. Series 3 image 36. Resolution of prior left lower lobe ground glass nodule. AIRWAY: Patent and unremarkable. HEART: Size within normal limits. Moderate coronary artery calcifications present. Thickening and ca lcification of aortic valve present. MEDIASTINUM: No gross evidence of adenopathy. VASCULATURE: No aortic aneurysm. MUSCULOSKELETAL: No acute osseous abnormalities SOFT TISSUES/LYMPH NODES: Unremarkable. LOWER NECK: No significant findings. UPPER ABDOMEN: No significant findings. IMPRESSION: 1. Resolution of prior left lower lobe groundglass pulmonary nodule. Finding likely infectious/infla mmatory on prior exam. 2. Stable right middle lobe 6 mm pulmonary nodule. No new or enlarging pulmonary nodules. Consider y early low-dose lung cancer screening. 3. Moderate severity without calcifications. 4. Severe coronary artery calcifications. Follow up recommendations for incidental pulmonary nodules, if there are any, are per [employer] [employer] or [employer] [place] [employer]. [email or web address] [facility], , 02/10/2025 10:59 AM
== END | disposition home or self-care (01) ==
LOC: RADCTMAIN 09:40
PROVIDERS: ATTEND Family Medicine
DX: R91.8 Other nonspecific abnormal finding of lung field (principal); I25.10 Atherosclerotic heart disease of native coronary artery without angina pectoris
CPT/HCPCS: 71250